=== PATIENT | female | born 1970 | race Asian ===

== ENCOUNTER 2019-07-06 00:29 | Emergency (ER) | payer OTHER ==
[~2019-07-06] VITALS: Ht 152.4 cm; Wt 63.5 kg
[2019-07-06 03:48] LABS: Alanine Aminotransfer (ALT/SGP 30 U/L (12-78); Albumin/Globulin Ratio 0.9 (0.8-1.8); Alk Phos 97 U/L (50-136); Anion Gap 6 mmol/L (6-16); Aspartate Aminotrans (AST/SGOT 20 U/L (12-37); Bilirubin, Total 0.5 mg/dL (0.1-1.0); Blood Urea Nitrogen 10 mg/dL (8-24); Bun/Creatinine Ratio 11.9 (12.0-20.0); CO2, Blood 26 mmol/L (21-32); Calcium, Blood 8.9 mg/dL (8.5-10.1); Chloride, Blood 107 mmol/L (98-108); Creatinine, Blood 0.84 mg/dL (0.40-1.00); Globulin, Blood 4.4 g/dL (2.2-4.0); Glomerular Filtration Rate >60 (60-); Glucose, Blood 115 mg/dL (70-99); Potassium, Blood 3.6 mmol/L (3.5-5.5); Sodium, Blood 139 mmol/L (136-145); Total Protein, Blood 8.4 g/dL (6.4-8.2)
[2019-07-06 04:27] LABS: BASOPHILS ABSOLUTE AUTO 0.05 K/mm3 (0.00-0.23); BASOPHILS PERCENT AUTO 0 % (0-2); EOSINOPHILS ABSOLUTE AUTO 0.22 K/mm3 (0.00-0.68); EOSINOPHILS PERCENT AUTO 2 % (0-6); Hematocrit 41.3 % (33.0-51.0); Hemoglobin 13.6 g/dL (11.5-16.0); IMMATURE GRAN ABSOLUTE AUTO 0.05 K/mm3 (0.00-0.10); IMMATURE GRAN PERCENT AUTO 0 % (0-1); LYMPHOCYTES ABSOLUTE AUTO 3.38 K/mm3 (0.84-5.20); LYMPHOCYTES PERCENT AUTO 24 % (21-46); MONOCYTES ABSOLUTE AUTO 1.05 K/mm3 (0.16-1.47); MONOCYTES PERCENT AUTO 8 % (4-13); Mean Corpuscular HGB 28.6 pg (26.0-34.0); Mean Corpuscular HGB Conc 32.9 g/dL (31.5-36.5); Mean Corpuscular Volume 87 fL (80-100); NEUTROPHILS ABSOLUTE AUTO 9.29 K/mm3 (1.96-9.15); NEUTROPHILS PERCENT AUTO 66 % (41-73); Platelet Count 332 K/mm3 (150-400); RDW Standard Deviation 40.8 fL (35.1-46.3); Red Blood Cell Count 4.76 M/mm3 (3.80-5.20); White Blood Cell Count 14.04 K/mm3 (4.00-11.30)
== END 2019-07-06 04:05 | disposition home or self-care (01) ==
LOC: ER 00:29
PROVIDERS: Emergency Medicine
DX: R10.13 Epigastric pain (principal)
CPT/HCPCS: 80053; 83690; 85025; 96374; 99283-25; J1885

== ENCOUNTER 2020-07-11 07:17 | Day surgery (SDC) | payer OTHER ==
[~2020-07-11] VITALS: Ht 152.4 cm; Wt 67.6 kg
[~2020-07-11 07:17] MED LIST: LAXATIVE PO; METAMUCIL POWD575 GM PO; OMEP20ER PO; POLY500 PO; STOOL SOFTENER PO
--- NOTE | 2020-07-11 08:24 | NUR ---
Ambulatory in Day Surgery History, Chart, Medications and Allergies reviewed before start of procedure. Pre-Op teaching done. Pt verbalizes understanding.
--- NOTE | 2020-07-11 11:30 | NUR ---
PT STATES SHE IS NOT READY TO TRY FLUIDS AT THIS TIME. AT [facility].
--- NOTE | 2020-07-11 11:45 | NUR ---
Discharge instructions reviewed with patient. Patient verbalizes understanding. Copy given to patient to take home. Patient States Post-Procedure ride home has been arranged. Discharged via wheelchair to private car for ride home. ALL BELONING SRETURNED TO PATIENT INCLUDING LOWER DENTURE AND GLASSES. PT WANTS ONE MORE MINUTE BEFORE GETTING READY TO GO HOME.
--- NOTE | 2020-07-11 12:16 | NUR ---
PT HAS NO NEW COMPLAINTS OF NAUSAE OR PAIN, INCISIONS REMAIN CLEAR. ALL BELONINGS RETURNED TO PATIENT Patient up to Ambulate independently. Gait steady.
== END 2020-07-11 22:57 | disposition home or self-care (01) ==
LOC: ORSCMMR 07:17 → ORD 08:45 → ORSCMMR 22:57
PROVIDERS: Surgery
PROC: BF131ZZ Fluoroscopy of Gallbladder and Bile Ducts using Low Osmolar Contrast (ICD-10-PCS; principal; 2020-07-11 08:45)
PROC: 0FT44ZZ Resection of Gallbladder, Percutaneous Endoscopic Approach (ICD-10-PCS; principal; 2020-07-11 08:45)
DX: K80.10 Calculus of gallbladder with chronic cholecystitis without obstruction (principal); K82.8 Other specified diseases of gallbladder; K21.9 Gastro-esophageal reflux disease without esophagitis; Z79.899 Other long term (current) drug therapy
CPT/HCPCS: 74300; 88304; A9270; C1729; J0690; J1100; J1885; J2250; J2405; J2704; J2765; J3010; J7030; J7120

== ENCOUNTER 2021-07-16 09:13 | Day surgery (SDC) | payer OTHER ==
[~2021-07-16] VITALS: Ht 152.4 cm; Wt 66.7 kg
--- NOTE | 2021-07-16 10:01 | NUR ---
PT AMBULATES TO [facility] STEADY GAIT. PREG-NEG. History, Chart, Medications and Allergies reviewed before start of procedure. Lungs clear T/O to Auscultation. Patient confirms NPO status and agrees with scheduled surgery. Patient States Post-Procedure ride home has been arranged.
--- NOTE | 2021-07-16 10:59 | NUR ---
07/16/21 1059 Ronny Hussein History, Chart, Medications and Allergies reviewed before start of procedure. Patient confirms NPO status and agrees with scheduled surgery. 3-LEAD EKG REVIEWED WITH PHYSICIAN PRIOR TO START OF PROCEDURE. MONITOR INTACT WITH CONTINUOUS PULSE OXIMETRY AND INTERMITTENT BP. PATIENT DETERMINED TO BE ASA APPROPRIATE FOR PROPOFOL SEDATION PRIOR TO START OF PROCEDURE BY DR. JUDD.
--- NOTE | 2021-07-16 11:23 | NUR ---
Patient States Post-Procedure ride home has been arranged. Discharge instructions reviewed with patient. Patient verbalizes understanding. Copy given to patient to take home. Discharged via wheelchair to private car for ride home.
== END 2021-07-16 11:24 | disposition home or self-care (01) ==
LOC: ORSCMMR 09:13 → ORD 10:00 → ORSCMMR 10:00
PROVIDERS: Internal Medicine Gastroenterology
PROC: 0DBN8ZX Excision of Sigmoid Colon, Via Natural or Artificial Opening Endoscopic, Diagnostic (ICD-10-PCS; principal; 2021-07-16 10:00)
DX: Z12.11 Encounter for screening for malignant neoplasm of colon (principal); D12.5 Benign neoplasm of sigmoid colon
CPT/HCPCS: 88305; J2704; J7120

== ENCOUNTER → 2024-05-01 | Outpatient (CLI) | payer OTHER ==
[2024-05-05 13:46] LABS: QUANTIFERON MITOGEN MINUS NIL 8.56 IU/mL; QUANTIFERON NIL 0.02 IU/mL; QUANTIFERON PLUS TB1 MINUS NIL 0.93 IU/mL (<=0.34); QUANTIFERON PLUS TB2 MINUS NIL 0.62 IU/mL (<=0.34)
== END ==
LOC: LAB SHORT 15:05 → LAB 15:05
PROVIDERS: Emergency Medicine
DX: R76.11 Nonspecific reaction to tuberculin skin test without active tuberculosis (principal)
CPT/HCPCS: 86480